=== PATIENT | female | born 1975 | race Caucasian/White ===

== ENCOUNTER 2021-11-26 09:57 | Outpatient (CLI) | payer BC, SELFPAY ==
--- NOTE | 2021-11-26 10:15 | CRLHL7_ITS ---
For Patients: As a result of the Century Cures Act, medical imaging exams and procedure reports are released immediately into your electronic medical record. You may view this report before your referring provider. If you have questions, please contact your health care provider. BILATERAL MAMMOGRAM WITH COMPUTER-AIDED DETECTION AND TOMOSYNTHESIS TECHNIQUE: CC and MLO views were obtained. These mammographic images have been obtained using full-field digital technique. These mammographic images were interpreted with the benefit of computer-aided detection. Breast Tomosynthesis was used in this interpretation. COMPARISON FILM: 11/13/2020, 11/15/2020, 11/14/2019, 07/27/2018. FINDINGS: The breasts are heterogeneously dense, which may obscure small masses IMPRESSION: There is no radiographic evidence for malignancy. ASSESSMENT: BI-RADS Category 1: Negative RECOMMENDATION: Routine screening mammogram in 1 year. A lay language report of this examination will be provided to the patient. Sunny Plunkett M.D. Diagnostic Radiologist [email or web address] SANAM/Dictated by: Sunny Plunkett MD @ 11/26/2021 11:57:00 AM (Electronically Signed)
== END 2021-11-26 09:58 | disposition home or self-care (01) ==
LOC: MAMMO 09:59
PROVIDERS: PCP Family Medicine; Visit Provider Family Medicine
DX: Z12.31 Encounter for screening mammogram for malignant neoplasm of breast (principal); R92.2 Inconclusive mammogram
CPT/HCPCS: 77063; 77067

== ENCOUNTER 2022-01-28 10:26 | Outpatient (CLI) | payer BC, SELFPAY ==
--- OUTSIDE RECORDS SUMMARY | 2022-01-28 10:29 | XMS_ITS ---
:1975 Author Care Team Providers Name Role Phone Chay Moya Primary Care Provider Unavailable Allergies Code Code System Name Reaction Severity Status Onset Sulfa (Sulfonamide Antibiotics) ? ? Active ? Medications No Medications Reported Problems Name Status Onset Date Source ? Otalgia Active 01/12/2022 ? Procedures None recorded. Results Lab Results None recorded. Past Encounters 01/12/2022 ELLIE Walton: [address], [place] [address], Ph. Social History None recorded. Vaccine List Vaccine Type COVID-19, mRNA, LNP-S, PF, 100 mcg/0.5 m L dose (Moderna) 05/31/2020 06/28/2020 04/04/2021 Influenza, injectable, MDCK, quadrivalen t 04/04/2021 Td (adult) preservative free 10/29/2009 Plan of Care Patient Instructions OTC analgesics as needed for irritation . RTC as needed. Reminders Provider Appointments None recorded. ? ? Lab None recorded. ? ? Referral None recorded. ? ? Procedures None recorded. ? ? Surgeries None recorded. ? ? Imaging None recorded. ? ? Vitals Blood Pressure 120/77 mm[Hg]
--- OUTSIDE RECORDS SUMMARY | 2022-01-28 10:29 | XMS_ITS | Clinical Summary ---
:1975 Author Organization [facility] [place] [address] Care Team Providers Name Role Phone Pcp, No Primary Care Provider Unavailable Lexi Perez MD Unavailable [phone] Allergies Active Allergy Reactions Severity Noted Date Comments Sulfa (Sulfonamide Antibiotics) 1 Sulfa (Sulfonamide Antibiotics) Hives 0 Medications Medication Sig Dispensed Refills Start Date End Date Status triamcinolone Apply topically 1 Tube 0 07/10/2011 Active (ARISTOCORT; KENALOG) to affected 0.1 % creamIndications: area(s) 3 times Contact dermatitis and daily. other eczema, due to unspecified cause LORazepam (ATIVAN) 0.5 Take 1-2 tablets 90 tablet 0 12/07/2012 Active mg TabIndications: by mouth every 6 Anxiety state, hours if needed. unspecified spironolactone 0 11/03/2019 Acti ve (ALDACTONE) 50 mg tablet traZODone (DESYREL) 100 Take 100 mg by 0 12/22/2019 Active mg tablet mouth at bedtime. Active Problems Problem Noted Date Anxiety state, unspecified 07/10/2011 Abdominal pain, epigastric 01/16/2011 Social History Tobacco Use Types Packs/Day Years Used Date Never Smoker Smokeless Tobacco: Never Used Tobacco Cessation: Counseling Given: Yes Alcohol Use Standard Drinks/Week Comments No 0 (1 standard drink = 0.6 oz pure alcoho l) Sex Assigned at Date Recorded Not on file Obstetrics History Para Term AB IAB SAB Ectopic Multiple Living Live Births 2 0 0 0 0 0 0 0 Date Outcome GA Total Labor/2nd/3rd Weight Sex Delivery Anes PTL Yoli A 1 A5 Name Clin Labor Last Filed Vital Signs Vital Sign Reading Time Taken Comments Blood Pressure 97/65 01/17/2020 10:31 AM CDT Pulse 69 01/17/2020 10:31 AM CDT Temperature 36.9 ??C (98.4 ??F) 01/17/2020 10:31 AM CDT Respiratory Rate - - Oxygen Saturation 100% 01/17/2020 10:31 AM CDT Inhaled Oxygen Concentration - - Weight 91.2 kg (201 lb) 01/17/2020 10:31 AM CDT Height 177.3 cm (5' 9.8) 01/17/2020 10:31 AM CDT Body Mass Index 29 01/17/2020 10:31 AM CDT Plan of Treatment Health Maintenance Due Date Last Done Comments COVID-19 vaccine series (#1) 1975 Tdap 1988 Depression screening for age 12+ 1989 Hepatitis C screening for age 1204/27/1995 18-79 Tetanus booster 05/17/2018 05/17/2008 (Completed outside of [facility]) BMI (ht and wt on same day) for 01/16/2021 01/17/2020 age 18+ Influenza for age 9-49 01/15/2022 Pap test for age 21-65 12/28/2022 12/29/2019, 12/29/2019, 12/07/2018, Additional history exists Results Not on filefrom Last 3 Months Insurance Payer Benefit Plan / Subscriber ID Effective Dates Phone Addre ss Type Group BLUE CROSS BLUE CROSS OF [id number] [facility] [address] [facility] [place] [address] Care Teams Gyroscopic Engineering Technician Relationship Specialty Start Date End Date Pcp, No PCP - General 12/25/19 . Lexi Perez MD Family Practice 12/25/19
--- OUTSIDE RECORDS SUMMARY | 2022-01-28 10:29 | XMS_ITS | Encounter Summary ---
:1975 Author Reason for Visit Adult earache Assessment and Plan Assessment Note Wax completely removed by irrigation. P atient reports irritation post irrigation. Exam shows full wax removal, canal appea rs normal. TM normal. 1. Otalgia Discussion Note: None recorded.Patient educational handouts: No information available. Plan of Care Patient Instructions OTC analgesics as needed for irritation . RTC as needed. Reminders Provider Appointments None recorded. ? ? Lab None recorded. ? ? Referral None recorded. ? ? Procedures None recorded. ? ? Surgeries None recorded. ? ? Imaging None recorded. ? ? Medications No Medications Reported Medications Administered None recorded. Vitals Blood Pressure 120/77 mm[Hg] Results Lab Results None recorded. Allergies Code Code System Name Reaction Severity Onset Sulfa (Sulfonamide Antibiotics) ? ? ? Problems Name Status Onset Date Source ? Otalgia Active 01/12/2022 ? Procedures None recorded. Vaccine List Vaccine Type COVID-19, mRNA, LNP-S, PF, 100 mcg/0.5 m L dose (Moderna) 05/31/2020 06/28/2020 04/04/2021 Influenza, injectable, MDCK, quadrivalen t 04/04/2021 Td (adult) preservative free 10/29/2009 Social History None recorded. Functional Status Unknown. Past Encounters 01/12/2022 Otalgia ELLIE Villafuerte: [address] [facility] [facility] [address], [place] [address], Ph. History of Present Illness ? Earache Reported By: Patient HPI: Location: right, pain inside ear, pain below ear. Quality: aching. Severity: improving, worseni ng. Duration: started 4 days ago. Timing: gradual. Context: no sick co ntacts, no recent swimming/water in ear, no exposure to second hand smok e, no head trauma, not grinding teeth, no recent air travel. Modifying Factors: does not hurt to lie on, or pull on ear, does not hurt to peter w; feels like she is choking due to swelling in side of neck under ear R side. Associated Symptoms: no hearing loss, no discharge from the ears, no nose/sinus problems, no popping noise in the ears, no ringing in the ears, no fever, no redness, no itching (pruritus), no ear bleeding, no vertigo, ears feel full, swelling. 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 Recent feeling of swelling in throat, tried ot c AH's without relief. </div> Review of Systems ? Urgent Care ROS Reported By: Patient Constitutional: Constitutional: no fever, no significant weight gain, no significant weight loss, no exercise intolerance, no malaise, night sweats, chills Eyes: Eyes: no dry eyes, no vision change, no irritation, no eye disease/injury ENMT: Ears: no difficulty hearing, ear pain. Nose: no frequent nosebleeds, no nose problems , no sinus problems, no congestion, loss of taste/sm ell: normal. Mouth/Throat: no sore throat, no bleeding gums, no snoring, no dry mouth, no mouth ulcers, no oral abnormalitie s, no teeth problems, no ringing in the ears, no sinusitis Cardiovascular: Cardiovascular: no chest brenda n, no arm pain on exertion, no shortness of breath when wal valery, no shortness of breath when lying down, no palpitations, no known heart murmur, no ankle swelling Respiratory: Respiratory: no cough, no wh eezing, no shortness of breath, no coughing up blood, no sleep apnea Gastrointestinal: Gastrointestinal: no abdomin al pain, no nausea, no vomiting, no constipation, normal appe tite, no diarrhea, not vomiting blood, no dyspepsia, no GERD , No loose stools Genitourinary: Genitourinary: no incontinen ce, no difficulty urinating, no hematuria, no increased freq uency, no dysuria Musculoskeletal: Musculoskeletal: no muscle a ches, no arthralgias/joint pain, no back pain, no swelling in the extremities, no neck pain, no difficulty walking, muscle w eakness, no cramps, no osteoporosis, no fractures Integumentary: Skin: no abnormal mole, no j aundice, no rashes, no laceration, no non-healing areas, no timbo nges in hair/nails, no psoriasis, no change in skin color, no breast lump Neurologic: Neurologic: no loss of consc iousness, no weakness, no numbness, no seizures, no di zziness, no migraines, no tremor, no gait dysfunction, no para lysis Psychiatric: Psych: no depression, no sle ep disturbances, feeling safe in a relationship, no alcohol abu se, no anxiety, no hallucinations, no suicidal thoughts, no moo d swings, no memory loss, no agitation, no dementia, no d elirium Endocrine: Endocrine: no fatigue Hematologic/Lymphatic: Hematologic/Lymphatic no swo llen glands, no bruising, no excessive bleeding, no anemi a, no phlebitis Allergic/Immunologic: Allergy/Immunologic: no runn y nose, no sinus pressure, no itching, no hives, no freque nt sneezing Physical Exam ? General Rash or Skin Lesion Exam, Ear Pain Exam Reported By: Patient Constitutional: General Appearance: well-jovana earing, well-nourished, well groomed, in no acute distres s Skin: Lesion Type: ; no evidence o f shingles in scalp, face, or neck Head/Face: Inspection: atraumatic, no m asses, no facial swelling. Inspection of the TMJ: no po pping with motion, normal movement Eyes: Lids and Conjunctivae: no di scharge. Pupils: PERRLA. EOM: EOMI Ears: Right External ear: normally formed. Left External ear: normally formed. Right External audit ory canal: canal occluded by cerumen; no mastoid ttp. Lef t External auditory canal: normal appearance, no obstruction, no erythema, no discharge. Right Tympanic membrane: pearly gr ey, landmarks clear. Left Tympanic membrane: pearly aguilar, landm arks clear Nose: Nasal Mucosa: normal Oral Cavity/Mouth: Tongue: normal tongue. Poste rior pharynx: normal. Nasopharynx: normal Neck: Neck: symmetrical, trachea m idline, normal ROM, no crepitus Respiratory: Inspection/Auscultation: goo d air movement, chest expands symmetrically Lymph Nodes: Cervical: no palpable lymph node enlargement Neurological System: Cranial Nerves: cranial nerv es II-XII grossly intact
[2022-01-28 13:27] LABS: Chloride* 103 mmol/L (96-114)
[2022-01-28 13:28] LABS: Albumin* 4.7 g/dL (3.3-5.0); Potassium* 4.5 mmol/L (3.6-5.1); Sodium* 139 mmol/L (135-149)
[2022-01-28 13:30] LABS: Amylase* 64 U/L (18-89); Carbon Dioxide* 26 mmol/L (20-32); Creatinine* 0.8 mg/dL (0.5-1.5); Estimated Glomerular Filt Rate 93 ml/min
[2022-01-28 13:31] LABS: Alanine Aminotransferase* 18 U/L (4-35); Alkaline Phosphatase* 74 U/L (40-150); Aspartate Amino Transferase* 18 U/L (12-35); Bilirubin Total* 0.6 mg/dL (0.1-1.5); Blood Urea Nitrogen* 14 mg/dL (5-24); Glucose* 97 mg/dL (60-115); Lipase* 102 U/L (23-300); Total Protein* 7.6 g/dL (6.0-8.3)
[2022-01-29 21:21] LABS: Immunoglobulin A 135 mg/dL (68-408)
[2022-01-30 11:46] LABS: Tissue Transglutaminase IgA < 2 U/mL (0-3)
== END 2022-01-28 10:27 | disposition home or self-care (01) ==
PROVIDERS: PCP Family Medicine; Visit Provider Family Medicine
DX: R10.12 Left upper quadrant pain (principal); G89.29 Other chronic pain; R10.13 Epigastric pain; R53.83 Other fatigue
CPT/HCPCS: 80053; 82150; 82784; 83690

== ENCOUNTER 2022-02-13 06:13 | Outpatient (CLI) | payer BC, SELFPAY ==
--- OUTSIDE RECORDS SUMMARY | 2022-02-13 06:16 | XMS_ITS ---
[...] ELLIE Walton: [address], [place] [address], Ph. Social History None recorded. Vaccine List [...]
--- OUTSIDE RECORDS SUMMARY | 2022-02-13 06:16 | XMS_ITS | Encounter Summary ---
[...] Past Encounters 01/12/2022 Otalgia ELLIE Villafuerte: [address] [facility], [facility] [address], [place] [address], Ph. History of Present Illness ? Earache [...] bleeding, no vertigo, ears feel full, swelling. 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, suspects wax build up. Recent feeling of [...] ears, no sinusitis Cardiovascular: Cardiovascular: no chest brneda n, no arm pain on exertion, no [...]
--- OUTSIDE RECORDS SUMMARY | 2022-02-13 06:17 | XMS_ITS | Clinical Summary ---
:1975 Author Organization [facility] [place] [address] Care Team Providers Name Role Phone Pcp, No Primary Care Provider Unavailable Lexi Perez MD Unavailable [phone] Allergies Active Allergy Reactions Severity Noted [...] Type Group BLUE CROSS BLUE CROSS OF [id number] 2017-[facility] [address] [place] [address] Care Teams Market Development Executive Relationship Specialty Start Date End Date Pcp, No PCP - General 12/25/19 . Lexi Perez MD Family Practice 12/25/19
== END 2022-02-13 06:14 | disposition home or self-care (01) ==
LOC: OP CLINIC 06:14
PROVIDERS: PCP Family Medicine; Visit Provider Internal Medicine
DX: R19.8 Other specified symptoms and signs involving the digestive system and abdomen (principal); K44.9 Diaphragmatic hernia without obstruction or gangrene
CPT/HCPCS: 43239; 88305; J2250; J2405; J3010

== ENCOUNTER 2022-02-22 09:33 | Outpatient (CLI) | payer BC, SELFPAY ==
--- OUTSIDE RECORDS SUMMARY | 2022-02-26 10:21 | XMS_ITS | Clinical Summary ---
:1975 Author Organization [facility] [place] [address] Care Team Providers Name Role Phone Pcp, No Primary Care Provider Unavailable Lexi Perez MD Unavailable [phone] Allergies Active Allergy Reactions Severity Noted [...] state, unspecified 07/10/2011 Abdominal pain, epigastric 01/16/2011 Encounters Date Type Specialty Care Team Description 02/13/2022 Lab Requisition Lucho King MD from Last 3 Months Social History Tobacco Use Types Packs/Day Years [...] Tetanus booster 05/17/2018 05/17/2008 (Completed outside of [facility]) BMI (ht and wt on same day) for 01/16/2021 01/17/2020 age 18+ Influenza for age 9-49 01/15/2022 Pap test for age 21-65 12/28/2022 12/29/2019, 12/29/2019, 12/07/2018, Additional history exists Procedures Procedure Name Priority Date/Time Associated Diagnosis Comme nts LAB TRACKING EVENT Routine 02/13/2022 7:10 AM CDT PATH TISSUE EXAM Routine 02/13/2022 7:10 AM Resul ts for this CDT procedure are i n the results section. from Last 3 Months Results LAB TRACKING EVENT (02/13/2022 7:10 AM CDT) Specimen Anatomical Collection Method Collection Time Receive d Time (Source) Location / / Volume Laterality Other (Other) Client Collect / 02/13/2022 7:10 AM 01/17 Unknown CDT 11:17 PM CDT Lucho King MD LAB BILL ONLY Performing Organization Address City/State/ZIP Code Phon e Number [facility] [address] [place] [address] LABORATORY-CENTRAL 2000 LABORATORY PATH TISSUE EXAM (02/13/2022 7:10 AM CDT) Component Value Ref Test Analysis Performed At [facility] gist Range Method Time Signature Case Report Pathology Report ?Case: [id number] ? 02/16/2022 [facility] Authorizing Provider: ??Lucho Castillo MD ?Collected: ? 02/13/2022 0710 ? 8:46 AM CDT HEALTH Ordering Location: ? [facility] C[facility] LAB ?Received: ?02/14/2022915 ? RIANNA CORONEL Pathologist: ? Ervin Cowan ? ENTRAL ? IV, MD ? LABORATORY Specimens: ?? A) - Duodenum ? B) - Stom ach ? C) - GE J unction Biopsy ? D) - Esop hagus ? Final A) DUODENUM, BIOPSY: 02/16/2022 [facility] Electronically Diagnosis 1. Normal duodenal mucosa 8:46 AM CDT HE ALTH signed by 2. Negative for celiac disease and other enteropathy LABORATORY-SISSY Drake B) STOMACH, BIOPSY: LABORATORY MD [facility]INA on 1. Normal gastric antral and body mucosae 02/16/2022 at 2. Negative for Helicobacter 8:46 AM C) GE JUNCTION, BIOPSY: 1. Normal esophageal squamous mucosa 2. Negative for reflux changes and eosinophilic esophagitis 3. Negative for columnar mucosa D) ESOPHAGUS, BIOPSY: 1. Normal esophageal squamous mucosa 2. Negative for reflux changes and eosinophilic esophagitis 3. Negative for columnar mucosa Clinical Ms. Herrera is a 46 y.o. who presents with uppe r abdominal symptoms. 02/16/2022 [facility] Information 8:46 AM CDT HEALTH EGD findings include: ISABEL RY-C - Normal endoscopy ENTRAL LABORATORY Gross A) Received in formalin is a ferrara mucosal fragment measuring 6 mm in greatest dimension, which is entirely submitted in one cassette. It is labeled with the patient's name and designated duodenum. 07/2021 [facility] Description 8:46 AM T HEALTH B) Received in formalin are 5 ferrara mucosal fragments ranging from 4 mm to 8 mm in greatest dimension, which are entirely submitted in one cassette. It is labeled with the patient's name and designated stomach. LABORATORY-C ENTRAL C) Received in formalin are 2 ferrara mucosal fragments ranging from 2 mm to 3 mm in greatest dimension, which are entirely submitted in one cassette. It is labeled with the patient's name and designated GE junction. LABORATORY D) Received in formalin is a ferrara mucosal fragment measuring 5 mm in greatest dimension, which is entirely submitted in one cassette. It is labeled with the patient's name and designated mid esophagus. Selma Padilla 02/14/2022 10:32 AM Microscopic The final 02/16/2022 [facility] Description diagnosis is 8:46 AM [facility] based on LABORATORY-C microscopic ENTRAL examination of LABORATORY appropriate sections of all specimens. Additional 02/16/2022 [facility] Information Interpreted at [facility], Central Laboratory - [address], [place] [address] 8:46 AM [facility] LABORATORY-C ENTRAL LABORATORY Specimen Anatomical Collection Method Collection Time Receive d Time (Source) Location / / Volume Laterality Other SPECIMEN FROM 02/13/2022 7:10 AM 02/15/20 22 9:16 ESOPHAGUS / CDT AM CDT Unknown Specimen SPECIMEN FROM 02/13/2022 7:10 AM 02/15/20 22 9:16 (specimen) STOMACH / Unknown CDT AM CDT Specimen 02/13/2022 7:10 AM 2 9:16 (specimen) (GE CDT AM CDT Junction Biopsy) Specimen SPECIMEN FROM 02/13/2022 7:10 AM 02/15/20 22 9:16 (specimen) ESOPHAGUS / CDT AM CDT Unknown Lucho King MD PATHOLOGY/CYTOLOGY Performing Organization Address City/State/ZIP Code Phon e Number [facility] [address] [place] [address] LABORATORY-CENTRAL 2000 LABORATORY from Last 3 Months Insurance Payer Benefit Plan / Subscriber ID Effective Dates Phone Addre ss Type Group BLUE CROSS BLUE CROSS OF [id number] 2017-[employer] [address] [facility] [place] [address] Care Teams Manager Of Marketing Relationship Specialty Start Date End Date Pcp, No PCP - General 12/25/19 . Lexi Perez MD Family Practice 12/25/19
== END 2022-02-22 09:34 | disposition home or self-care (01) ==
LOC: NFLDUCREF 02-26 10:12
PROVIDERS: PCP Family Medicine; Visit Provider Nurse Practitioner Family
DX: R30.0 Dysuria (principal); N39.0 Urinary tract infection, site not specified
CPT/HCPCS: 87086; 87186

== ENCOUNTER 2022-07-29 07:50 | Outpatient (CLI) | payer BC, SELFPAY | END 2022-07-29 07:51 | disposition home or self-care (01) | LOC: NFLDREF 07-30 19:20 | PROVIDERS: PCP Family Medicine; Referring Provider Family Medicine; Visit Provider Family Medicine | DX: Z01.419 Encounter for gynecological examination (general) (routine) without abnormal findings (principal); R53.83 Other fatigue; Z13.6 Encounter for screening for cardiovascular disorders | CPT/HCPCS: 80053; 80061 ==

== ENCOUNTER 2022-08-05 13:03 | Outpatient (CLI) | payer BC, SELFPAY | END 2022-08-05 13:04 | disposition home or self-care (01) | LOC: NFLDREF 13:04 | PROVIDERS: PCP Family Medicine; Visit Provider Family Medicine | DX: Z00.00 Encounter for general adult medical examination without abnormal findings (principal); R53.83 Other fatigue | CPT/HCPCS: 84443 ==

== ENCOUNTER 2022-09-16 09:30 | Outpatient (RCR) | payer BC, SELFPAY | END 2022-11-09 11:28 | disposition home or self-care (01) | PROVIDERS: PCP Family Medicine; Visit Provider Family Medicine | DX: M25.511 Pain in right shoulder (principal); M25.512 Pain in left shoulder; Z74.09 Other reduced mobility; M62.81 Muscle weakness (generalized); Z51.89 Encounter for other specified aftercare | CPT/HCPCS: 97110; 97140; 97161 ==

== ENCOUNTER 2022-09-18 07:43 | Outpatient (CLI) | payer BC, SELFPAY ==
[2022-09-18 08:10] LABS: Ur HCG Qualitative* Negative (Negative)
== END 2022-09-18 07:44 | disposition home or self-care (01) ==
LOC: OP CLINIC 07:44
PROVIDERS: PCP Family Medicine; Visit Provider Internal Medicine
DX: Z12.11 Encounter for screening for malignant neoplasm of colon (principal); K63.5 Polyp of colon
CPT/HCPCS: 45380; 45385; 81025; 88305; J2250; J2405; J3010

== ENCOUNTER 2022-11-10 15:39 | Emergency (ER) | payer BC, SELFPAY ==
[2022-11-10 15:42] VITALS: BP 123/74; PULSE 79; RESP 18; TEMP 36.7; O2SAT 99
--- NOTE | 2022-11-10 16:20 | CRLHL7_ITS ---
For Patients: As a result of the Century Cures Act, medical imaging exams and procedure reports are released immediately into your electronic medical record. You may view this report before your referring provider. If you have questions, please contact your health care provider. INDICATION: Left leg pain TECHNIQUE: Ultrasound venous duplex lower left extremity. Compression venous exam was performed using umaña-scale, color Doppler, and spectral Doppler analysis. COMPARISON: None. FINDINGS: Sonographic imaging demonstrates the left common femoral, deep femoral, superficial femoral, popliteal, posterior tibial and greater saphenous and the contralateral right common femoral veins to be fully compressible with normal color Doppler blood flow. IMPRESSION: Normal left lower extremity venous ultrasound, no sign of deep venous thrombosis. Dictated by Rodney Howard MD @ 11/10/2022 5:11:40 PM (Electronically Signed)
--- NOTE | 2022-11-10 17:32 | ED_ITS ---
HPI - General Adult General Date Seen: 11/10/22 Chief complaint: Extremity Pain/Injury, Lower Stated complaint: Thinks there may be a blood clot L leg Time Seen by Provider: 11/10/22 16:05 Source: patient Mode of arrival: ambulatory Limitations: no limitations History of Present Illness HPI narrative: Patient is a 47-year-old female who comes in with complaints of tenderness in her left thigh and a sensation of movement at times. Two and half weeks ago she had a 24 hour GI illness with vomiting and diarrhea. Shortly after that she began having some discomfort in her left thigh. This began in the medial aspect is now most severe anteriorly. She has some varicosities on that side. No history of DVT. She does not smoke or take estrogen. There is a strong family history of blood clots however. She is unaware of any of these clots were related to a congenital clotting disorder. She denies any chest pain or shortness of breath. She denies any pain, swelling, redness in her calf. She has had no periods of immobilization. Related Data Home Medications Medication Instructions Recorded Confirmed cholecalciferol (vitamin D3) 25 1,000 unit PO DAILY 02/22/22 08/05/22 mcg (1,000 unit) tablet magnesium citrate 100 mg capsule 300 mg PO QDAY 08/05/22 08/05/22 spironolactone 50 mg tablet 50 mg PO QAM 08/05/22 08/05/22 Previous Rx's Medication Instructions Recorded omeprazole 20 mg capsule,delayed 20 mg PO QDAY #30 caps 01/28/22 release peg 3350-electrolytes 236 4,000 ml PO .ud PRN Colonoscopy 09/17/22 gram-22.74 gram-6.74 gram-5.86 #4,000 mL gram solution (Golytely) peg 3350-electrolytes 236 240 ml PO ONCE #4,000 mL 09/17/22 gram-22.74 gram-6.74 gram-5.86 gram solution (Golytely) Allergies Allergy/AdvReac Type Severity Reaction Status Date / Time Sulfa drugs Allergy Severe Hives Uncoded 08/05/22 12:56 Adhesive Allergy Unknown Unknown Uncoded 08/05/22 12:56 Latex Allergy Unknown Unknown Uncoded 08/05/22 12:56 Nickel Allergy Unknown Unknown Uncoded 08/05/22 12:56 Review of Systems Narrative: Review of systems is outlined above otherwise noted to be negative. PFSH PFS Medical History (Updated 11/10/22 @ 16:54 by Sunny Peng MD) Moderate anxiety ?F41.9 - Anxiety disorder, unspecified (ICD-10) Insomnia ?G47.00 - Insomnia, unspecified (ICD-10) Constipation ?K59.00 - Constipation, unspecified (ICD-10) Chronic back pain greater than 3 months duration ?M54.9 - Dorsalgia, unspecified (ICD-10) ?G89.29 - Other chronic pain (ICD-10) Blepharospasm of right eye ?G24.5 - Blepharospasm (ICD-10) Surgical History (Updated 08/05/22 @ 06:55 by Santa Wheeler MD) History of tonsillectomy (1999) ?Z90.89 - Acquired absence of other organs (ICD-10) History of laparoscopic cholecystectomy (2007) ?Z90.49 - Acquired absence of other specified parts of digestive tract (ICD- 10) History of colposcopy with cervical biopsy (11/2017) ?Z98.890 - Other specified postprocedural states (ICD-10) History of colonoscopy (1999) ?Z98.890 - Other specified postprocedural states (ICD-10) History of 2 sections (2007) ?Z98.891 - History of uterine scar from previous surgery (ICD-10) Family History (Updated 08/05/22 @ 06:58 by Santa Wheeler MD) Paternal Grandmother Breast cancer, Onset Age: 35 Paternal Grandfather Coronary artery disease Myocardial infarction, Onset Age: 73 Stroke Father Coronary artery disease Diabetes S/P coronary artery stent placement, Onset Age: 60 Sister Multiple sclerosis Aunt Schizophrenia Other Alzheimers disease Testicle cancer Social History (Updated 08/05/22 @ 07:00 by Santa Wheeler MD) 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: , 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, 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 Non-smoker Exercises -walks daily, 4 times a week 4 miles Rarely consumes alcohol Smoking Status: Former smoker Do you use any of these nicotine containing products: None Second hand tobacco smoke exposure: No How often do you have a drink containing alcohol: monthly or less How many standard drinks containing alcohol do you have on a typical day: 1 or 2 How often do you have six or more drinks on one occasion: Never AUDIT-C Alcohol total score: 1 Non-prescribed substance use: marijuana (any form) Non-prescribed substance use details: to help with sleep Little interest or pleasure in doing things: not at all Feeling down, depressed, or hopeless: not at all service: No Exam Narrative: Exam Narrative: Vitals noted. HEENT: Conjunctiva clear. Neck is supple without adenopathy, thyromegaly. Lungs: Clear to auscultation in all ruffin. No wheezes, rales, rhonchi. Heart: Regular rate and rhythm without murmur. Abdomen: Soft and nontender. No guarding, rigidity, rebound. Bowel sounds are normal. No palpable masses. Extremities: No cyanosis or edema. Good distal pulses. Skin: No abnormalities noted of the exposed skin. She does have some scattered varicosities. There are some palpable vessels and the medial left thigh. No palpable clot. Negative Hemanth sign. Neurologic: Awake, alert, fully oriented. Neurologic exam is nonfocal. Const: Vital Signs, click to edit/add: Vital Signs - 24 hr 11/10/22 15:42 Temperature 98.1 F Pulse Rate [Right Pulse Oximeter] 79 Respiratory Rate 18 Blood Pressure [Ri ght Upper Arm] 123/74 Pulse Oximetry 99 Oxygen Delivery Me thod Room Air Course Course Hospital Course: Patient seen and examined. Venous duplex scan of her left leg is ordered and is completely negative. No ultrasound evidence of superficial thrombophlebitis. Vital Signs Vital signs: Initial Vital Signs Temperature 98.1 F 11/10/22 15:42 Temperature Source Temporal Artery Scan 11/10/22 15:42 Pulse Rate 79 11/10/22 15:42 Respiratory Rate 18 11/10/22 15:42 Blood Pressure 123/74 11/10/22 15:42 Blood Pressure Mean 90 11/10/22 15:42 Blood Pressure Position Sitting 11/10/22 15:42 Pulse Oximetry 99 11/10/22 15:42 Oxygen Delivery Method Room Air 11/10/22 15:42 Vital Signs Temperature 98.1 F 11/10/22 15:42 Pulse Rate 79 11/10/22 15:42 Respiratory Rate 18 11/10/22 15:42 Blood Pressure 123/74 11/10/22 15:42 Pulse Oximetry 99 11/10/22 15:42 Oxygen Delivery Method Room Air 11/10/22 15:42 Temperature 98.1 F 11/10/22 15:42 Pulse Rate 79 11/10/22 15:42 Respiratory Rate 18 11/10/22 15:42 Blood Pressure 123/74 11/10/22 15:42 Pulse Oximetry 99 11/10/22 15:42 Oxygen Delivery Method Room Air 11/10/22 15:42 Medical Decision Making MDM Narrative Medical decision making narrative: Her symptoms are most consistent with a superficial thrombophlebitis. Deep clot has been ruled out. Discharge Plan Discharge Clinical Impression: Superficial thrombophlebitis Patient Disposition: Home, Self-Care Condition: Stable Additional Instructions: Rest, heat, elevate, compression stockings. Aspirin 325 mg twice a day until pain resolved. Follow up in the clinic if no better over the next 7-10 days. Prescriptions: No Action cholecalciferol (vitamin D3) 25 mcg (1,000 unit) tablet 1,000 unit PO DAILY magnesium citrate 100 mg capsule 300 mg PO QDAY spironolactone 50 mg tablet 50 mg PO QAM omeprazole 20 mg capsule,delayed release(DR/EC) 20 mg PO QDAY Qty: 30 0RF peg 3350-electrolytes [Golytely] 236-22.74-6.74 -5.86 gram recon soln 240 ml PO ONCE Qty: 4000 0RF Rx Instructions: 4pm day prior to procedure. Drink 8oz glass every 15 minutes until 1/2 of solution is gone. 6 hours prior to procedure drink 8 oz glass every 15 minutes until remaining solution gone. peg 3350-electrolytes [Golytely] 236-22.74-6.74 -5.86 gram recon soln 4,000 ml PO .ud PRN (Reason: Colonoscopy) Qty: 4000 0RF Rx Instructions: 1 day prior to scopes, between 4 and 6:00 p.m., drink 8 oz glass every 15 minutes until half a gallon is gone. 5 hours prior to procedure, drink 8 oz glass every 15 minutes until second half gallon in gone Follow Up/Referrals: Santa Wheeler MD [Primary Care Provider] - Stand Alone [facility]
== END 2022-11-10 17:13 | disposition home or self-care (01) ==
LOC: ED 17:00
PROVIDERS: Emergency Provider Family Medicine; PCP Family Medicine
DX: I80.02 Phlebitis and thrombophlebitis of superficial vessels of left lower extremity (principal)
CPT/HCPCS: 93971; 99282; 99283

== ENCOUNTER 2022-11-17 19:33 | Emergency (ER) | payer BC, SELFPAY ==
[2022-11-17 19:41] VITALS: BP 126/67; PULSE 74; RESP 20; TEMP 36.2; O2SAT 99
--- NOTE | 2022-11-17 19:49 | ED_ITS ---
HPI - Nausea/Vomiting/Diarrhea General Chief complaint: Nausea/Vomiting Stated complaint: Diarrhea Vomiting Time Seen by Provider: 11/17/22 19:37 History of Present Illness HPI Narrative: This 47-year-old female comes in reporting 2 days of nausea, vomiting, and diarrhea. She states that her mouth is dry in she has a headache related to these symptoms. She has had symptoms like this in the past that of lasted for short time but comes in today because of prolonged persistent symptoms. She does not report any fevers. Prior to this She was in good health. Related Data Home Medications Medication Instructions Recorded Confirmed cholecalciferol (vitamin D3) 25 1,000 unit PO DAILY 02/22/22 11/17/22 mcg (1,000 unit) tablet magnesium citrate 100 mg capsule 300 mg PO QDAY 08/05/22 11/17/22 spironolactone 50 mg tablet 50 mg PO QAM 08/05/22 11/17/22 Previous Rx's Medication Instructions Recorded omeprazole 20 mg capsule,delayed 20 mg PO QDAY #30 caps 01/28/22 release peg 3350-electrolytes 236 4,000 ml PO .ud PRN Colonoscopy 09/17/22 gram-22.74 gram-6.74 gram-5.86 #4,000 mL gram solution (Golytely) peg 3350-electrolytes 236 240 ml PO ONCE #4,000 mL 09/17/22 gram-22.74 gram-6.74 gram-5.86 gram solution (Golytely) Allergies Allergy/AdvReac Type Severity Reaction Status Date / Time Sulfa drugs Allergy Severe Hives Uncoded 08/05/22 12:56 Adhesive Allergy Unknown Unknown Uncoded 08/05/22 12:56 Latex Allergy Unknown Unknown Uncoded 08/05/22 12:56 Nickel Allergy Unknown Unknown Uncoded 08/05/22 12:56 Review of Systems Status of ROS: Reports: 10 or more systems reviewed and unremarkable except as noted in History and below Narrative: Constitutional: No fevers, no weight gain or loss. Eyes: No discharge. No vision changes. HENT: No congestion, no sore throat, no ear pain. Cardiovascular: No chest pain, no palpitations. Respiratory: No shortness of breath, no wheezes, no cough. Gastrointestinal: No abdominal pain . Nausea, vomiting, and diarrhea. Genitourinary: No dysuria, no hematuria. Musculoskeletal: Normal range of motion. Skin: No rashes, no pruritis. Neurological: No dizziness, weakness, sensory change, speech change. Endo/Heme/Allergies: No bruising or bleeding. No polydipsia. Pysch: no suicidality, no anxiety, no insomnia. All other systems reviewed and are negative. [facility] Medical History (Updated 11/17/22 @ 20:36 by Thiago Dean MD) Moderate anxiety ?F41.9 - Anxiety disorder, unspecified (ICD-10) Insomnia ?G47.00 - Insomnia, unspecified (ICD-10) Constipation ?K59.00 - Constipation, unspecified (ICD-10) Chronic back pain greater than 3 months duration ?M54.9 - Dorsalgia, unspecified (ICD-10) ?G89.29 - Other chronic pain (ICD-10) Blepharospasm of right eye ?G24.5 - Blepharospasm (ICD-10) Surgical History (Updated 08/05/22 @ 06:55 by Santa Wheeler MD) History of tonsillectomy (1999) ?Z90.89 - Acquired absence of other organs (ICD-10) History of laparoscopic cholecystectomy (2007) ?Z90.49 - Acquired absence of other specified parts of digestive tract (ICD- 10) History of colposcopy with cervical biopsy (11/2017) ?Z98.890 - Other specified postprocedural states (ICD-10) History of colonoscopy (1999) ?Z98.890 - Other specified postprocedural states (ICD-10) History of 2 sections (2007) ?Z98.891 - History of uterine scar from previous surgery (ICD-10) Family History (Updated 08/05/22 @ 06:58 by Santa Wheeler MD) Paternal Grandmother Breast cancer, Onset Age: 35 Paternal Grandfather Coronary artery disease Myocardial infarction, Onset Age: 73 Stroke Father Coronary artery disease Diabetes S/P coronary artery stent placement, Onset Age: 60 Sister Multiple sclerosis Aunt Schizophrenia Other Alzheimers disease Testicle cancer Social History (Updated 08/05/22 @ 07:00 by Santa Wheeler MD) 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: , 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, 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 Non-smoker Exercises -walks daily, 4 times a week 4 miles Rarely consumes alcohol Smoking Status: Former smoker Do you use any of these nicotine containing products: None Second hand tobacco smoke exposure: No How often do you have a drink containing alcohol: monthly or less How many standard drinks containing alcohol do you have on a typical day: 1 or 2 How often do you have six or more drinks on one occasion: Never AUDIT-C Alcohol total score: 1 Non-prescribed substance use: marijuana (any form) Little interest or pleasure in doing things: not at all Feeling down, depressed, or hopeless: not at all service: No Exam Narrative: Exam Narrative: Constitutional: Well-developed, well-nourished, no acute distress. HEENT: Normocephalic, atraumatic. Neck: Normal range of motion. Nontender. Supple. Heart: Regular. No murmurs. Normal rate. Intact distal pulses. Lungs: Clear to auscultation. No chest discomfort. No wheezes, rhonchi, or rales. Abdomen: Normal bowel sounds. Nontender. No rebound tenderness. Genitalia: Deferred. Back: No midline tenderness. Normal range of motion. Extremities: Normal range of motion. No injury. Skin: Intact. No rash. Warm. No erythema or pallor. Neurologic: No altered sensation. No weakness. Alert and oriented. Psychiatric: No suicidality. No anxiety or depression. No insomnia. Nursing notes and vitals signs are reviewed. Const: Vital Signs, click to edit/add: Vital Signs - 24 hr 11/17/22 19:41 Temperature 97.2 F L Pulse Rate [Right Pulse Oximeter] 74 Respiratory Rate 20 Blood Pressure [Le ft Upper Arm] 126/67 Pulse Oximetry 99 Oxygen Delivery Me thod Room Air Course Vital Signs Vital signs: Initial Vital Signs Temperature 97.2 F L 11/17/22 19:41 Temperature Source Temporal Artery Scan 11/17/22 19:41 Pulse Rate 74 11/17/22 19:41 Respiratory Rate 20 11/17/22 19:41 Blood Pressure 126/67 11/17/22 19:41 Blood Pressure Mean 86 11/17/22 19:41 Blood Pressure Position Semi-Fowlers 11/17/22 19:41 Pulse Oximetry 99 11/17/22 19:41 Oxygen Delivery Method Room Air 11/17/22 19:41 Vital Signs Temperature 97.2 F L 11/17/22 19:41 Pulse Rate 74 07/04/23 19:41 Respiratory Rate 20 11/17/22 19:41 Blood Pressure 126/67 11/17/22 19:41 Pulse Oximetry 99 11/17/22 19:41 Oxygen Delivery Method Room Air 11/17/22 19:41 Temperature 97.2 F L 11/17/22 19:41 Pulse Rate 74 11/17/22 19:41 Respiratory Rate 20 11/17/22 19:41 Blood Pressure 126/67 11/17/22 19:41 Pulse Oximetry 99 11/17/22 19:41 Oxygen Delivery Method Room Air 11/17/22 19:41 MDM - Nausea/Vomiting/Diarrhea MDM Narrative Medical decision making narrative: This patient has 2 days of vomiting and diarrhea. An IV was established where she received a L of normal saline, 30 mg of Toradol, and 4 mg of Zofran. Lab results returned with reassuring findings. The patient's symptoms have improved with these stated treatments. She is okay to be discharged home. Prescription for Zofran is provided. The patient is encouraged use [id number] Imodium for management of diarrhea symptoms. Lab Data Labs: Lab Results 11/17/22 Range/Units 20:07 WBC 6.26 (4.50-11.00) K/uL RBC 4.68 (4.00-5.20) m/uL Hgb 13.9 (12.0-16.0) gm/dL Hct 42.0 (33.0-51.0) % MCV 90 (80-100) fL MCH 30 (26-34) pg MCHC 33 (32-36) gm/dL RDW Coeff of Saravanan 12.5 (11.5-15.5) % Plt Count 188 (140-440) K/uL Neut % (Auto) 81.0 H (42.0-72.0) % Lymph % (Auto) 10.9 L (20-44) % Montgomery % (Auto) 7.7 (0.0-11.0) % Eos % (Auto) 0.2 (0.0-7.0) % Baso % (Auto) 0.2 (0.0-3.0) % Neut # (Auto) 5.10 (1.7-7.0) K/uL Lymph # (Auto) 0.70 L (0.90-2.90) K/uL Montgomery # (Auto) 0.50 (0.00-0.90) K/UL Eos # (Auto) 0.01 (0.00-0.50) K/uL Baso # (Auto) 0.01 (0.00-0.30) K/uL Sodium 136 (135-149) mmol/L Potassium 3.7 (3.6-5.1) mmol/L Chloride 102 (96-114) mmol/L Carbon Dioxide 22 (20-32) mmol/L BUN 13 (5-24) mg/dL Creatinine 0.8 (0.5-1.5) mg/dL Estimated GFR 93 ml/min Glucose 112 (60-115) mg/dL Calcium 9.0 (8.4-10.6) mg/dL Discharge Plan Discharge Clinical Impression: Gastroenteritis Patient Disposition: Home, Self-Care Condition: Improved Additional Instructions: Take medication as needed and directed. Use Imodium [id number] as needed and directed also for diarrhea management. Increase fluids and diet as tolerated. Follow up with MD return if not improving or worsening. Prescriptions: No Action cholecalciferol (vitamin D3) 25 mcg (1,000 unit) tablet 1,000 unit PO DAILY magnesium citrate 100 mg capsule 300 mg PO QDAY spironolactone 50 mg tablet 50 mg PO QAM omeprazole 20 mg capsule,delayed release(DR/EC) 20 mg PO QDAY Qty: 30 0RF peg 3350-electrolytes [Golytely] 236-22.74-6.74 -5.86 gram recon soln 240 ml PO ONCE Qty: 4000 0RF Rx Instructions: 4pm day prior to procedure. Drink 8oz glass every 15 minutes until 1/2 of solution is gone. 6 hours prior to procedure drink 8 oz glass every 15 minutes until remaining solution gone. peg 3350-electrolytes [Golytely] 236-22.74-6.74 -5.86 gram recon soln 4,000 ml PO .ud PRN (Reason: Colonoscopy) Qty: 4000 0RF Rx Instructions: 1 day prior to scopes, between 4 and 6:00 p.m., drink 8 oz glass every 15 minutes until half a gallon is gone. 5 hours prior to procedure, drink 8 oz glass every 15 minutes until second half gallon in gone Follow Up/Referrals: Santa Wheeler MD [Primary Care Provider] - Stand Alone Forms: [facility] Info Instructions
[2022-11-17] MEDS: 0.9 % SODIUM CHLORIDE 1000 ml 1,000 ML IV (20:02)
[2022-11-17] MEDS: KETOROLAC 30 MG/ML inj IVP (20:02)
[2022-11-17] MEDS: ONDANSETRON 2 MG/ML inj 4 MG IVP (20:02)
[2022-11-17 20:13] LABS: Basophils Absolute Auto 0.01 K/uL (0.00-0.30); Basophils Percent Auto 0.2 % (0.0-3.0); Eosinophils Absolute Auto 0.01 K/uL (0.00-0.50); Eosinophils Percent Auto 0.2 % (0.0-7.0); Hemoglobin* 13.9 gm/dL (12.0-16.0); Lymphocytes Percent Auto 10.9 % (20-44); Mean Corpuscular HGB Conc 33 gm/dL (32-36); Mean Corpuscular Hemoglobin 30 pg (26-34); Mean Corpuscular Volume 90 fL (80-100); Monocytes Percent Auto 7.7 % (0.0-11.0); Platelet Count* 188 K/uL (140-440); RDW Coefficient of Variation % 12.5 % (11.5-15.5); Red Blood Count 4.68 m/uL (4.00-5.20); Slide Review Reflex No; White Blood Count* 6.26 K/uL (4.50-11.00)
[2022-11-17 20:25] LABS: Chloride* 102 mmol/L (96-114); Potassium* 3.7 mmol/L (3.6-5.1); Sodium* 136 mmol/L (135-149)
[2022-11-17 20:28] LABS: Carbon Dioxide* 22 mmol/L (20-32); Creatinine* 0.8 mg/dL (0.5-1.5); Estimated Glomerular Filt Rate 93 ml/min
[2022-11-17 20:29] LABS: Blood Urea Nitrogen* 13 mg/dL (5-24); Glucose* 112 mg/dL (60-115)
[2022-11-17 20:34] VITALS: BP 118/66; PULSE 69; RESP 18; O2SAT 99
== END 2022-11-17 20:55 | disposition home or self-care (01) ==
PROVIDERS: Emergency Provider Emergency Medicine Emergency Medical Services; PCP Family Medicine
DX: K52.9 Noninfective gastroenteritis and colitis, unspecified (principal)
CPT/HCPCS: 36415; 80048; 85025; 96374; 96375; 99283; 99284; J1885; J2405; J7030

== ENCOUNTER 2022-12-02 07:58 | Outpatient (CLI) | payer BC, SELFPAY ==
--- NOTE | 2022-12-02 08:15 | CRLHL7_ITS ---
For Patients: As a result of the Cures Act, medical imaging exams and procedure reports are released immediately into your electronic medical record. You may view this report before your referring provider. If you have questions, please contact your health care provider. BILATERAL SCREENING MAMMOGRAM WITH COMPUTER-AIDED DETECTION AND TOMOSYNTHESIS TECHNIQUE: CC and MLO views were obtained. These mammographic images have been obtained using full-field digital technique. These mammographic images were interpreted with the benefit of computer-aided detection. Breast tomosynthesis was used in this interpretation. COMPARISON FILM: 11/26/21, 11/15/20, 11/13/20. FINDINGS: The breasts are heterogeneously dense, which may obscure small masses. IMPRESSION: There is no radiographic evidence for malignancy. ASSESSMENT: BI-RADS Category 2: Benign RECOMMENDATION: Routine screening mammogram in 1 year. A lay language report of this examination will be provided to the patient. KAE PACE M.D. Diagnostic/Nuclear Medicine Radiologist [email or web address] LINDA:[email or web address] Transcribed: 12/02/2022, 5:[address]/Dictated by: Kae Pace MD @ 12/02/2022 8:28:00 AM (Electronically Signed)
== END 2022-12-02 07:59 | disposition home or self-care (01) ==
PROVIDERS: PCP Family Medicine; Visit Provider Family Medicine
DX: Z12.31 Encounter for screening mammogram for malignant neoplasm of breast (principal); R92.2 Inconclusive mammogram
CPT/HCPCS: 77063; 77067

== ENCOUNTER 2023-05-07 14:57 | Outpatient (CLI) | payer BC, SELFPAY | END 2023-05-07 14:58 | disposition home or self-care (01) | LOC: NFLDREF 14:58 | PROVIDERS: PCP Family Medicine; Visit Provider Obstetrics & Gynecology | DX: Z13.29 Encounter for screening for other suspected endocrine disorder (principal); R68.89 Other general symptoms and signs | CPT/HCPCS: 84443 ==

== ENCOUNTER 2023-10-01 07:02 | Outpatient (CLI) | payer BC, SELFPAY ==
--- OUTSIDE RECORDS SUMMARY | 2023-10-01 07:05 | XMS_ITS | Clinical Summary ---
Author Name Unknown Organization [facility] Address [place], [place] [address] Care Team Providers Care Scientific Editor Name Role Phone Pcp, No Primary Care Provider Unavailabl e Lexi Perez MD Unavailable [phone] Allergies Active Allergy Reactions Criticality Noted Date Comments Sulfa (Sulfonamide Antibiotics) 06/2010 Sulfa (Sulfonamide Antibiotics) Hives 06/2019 Medications Medication Sig Dispensed Refills Start Date End Date Status triamcinolone (ARISTOCORT; KENALOG) 0.1 % creamIndications:Con tact dermatitis and other eczema, due to unspecified cause Apply topically to affected area(s) 3 times daily. 1 Tube prn 07/10/2011 Active LORazepam (ATIVAN) 0.5 mg TabIndications:Anxie ty state, unspecified Take 1-2 tablets by mouth every 6 hours if needed. 90 tablet 0 12/07/2012 Active spironolactone (ALDACTONE) 50 mg tablet 11/03/2019 Active traZODone (DESYREL) 100 mg tablet Take 100 mg by mouth at bedtime. 12/22/2019 Active Active Problems Problem Noted Date Diagnosed Date Anxiety state, unspecified 07/10/2011 Abdominal pain, epigastric 01/16/2011 Social History Tobacco Use Types Packs/Day Years Used Date Smoking Tobacco: Never Smokeless Tobacco: Never Tobacco Cessation:Counseling Given: Yes Alcohol Use Standard Drinks/Week Comments No 0 (1 standard drink = 0.6 oz pur e alcohol) Social Connections Answer Date Recorded Frequency of Communication with Friends and Fami ly Not on file 05/17/2021 Financial Resource Strain Answer Date R ecorded Difficulty of Paying Living Expenses Not on file 05/17/2021 Difficulty of Paying Living Expenses Not on file 05/17/2021 Sex and Gender Information Value Date Recorded Sex Assigned at Not on file Gender Identity Not on file Sexual Orientation Not on file Obstetrics History Para Term AB IAB SAB Ectopic Multiple Livin g Live Births 2 0 0 0 0 0 0 0 Date Outcome GA Total Labor Labor/2nd/3rd Weight Sex Delivery Anes PTL Yoli A1 A5 Name Cl in Last Filed Vital Signs Vital Sign Reading Time Taken Comments Blood Pressure 97/65 01/17/2020 10:31 AM CDT Pulse 69 01/17/2020 10:31 AM CDT Temperature 36.9 ??C (98.4 ??F) 01/17/2020 10:31 AM C DT Respiratory Rate - - Oxygen Saturation 100% 01/17/2020 10:31 AM CDT Inhaled Oxygen Concentration - - Weight 91.2 kg (201 lb) 01/17/2020 10:31 AM CDT Height 177.3 cm (5' 9.8) 01/17/2020 10:31 AM CD T Body Mass Index 29 01/17/2020 10:31 AM CDT Plan of Treatment Health Maintenance Due Date Last Done Comments Tdap 1988 Depression screening for age 12+ 1989 HIV for age 15-65 1992 Hepatitis C screening for age 18-79 1995 Tetanus booster 05/17/2018 05/17/2008 (Comp leted outside of [facility]) BMI (ht and wt on same day) for age 18+ 01/16/2021 01/17/2020 Colonoscopy through age 75 2022 Lipids for age 45-75 2022 Mammogram for age 45-75 2022 Pap test for age 21-65 12/28/2022 0, 12/29/2019, 12/07/2018, Additional history exists COVID-19 vaccine series (2022- season) 2023 Influenza for age 9-49 01/16/2024 Pneumococcal series for age 6-64 Aged Out No longer eligible based on patient's age to complete this topic Procedures Procedure Name Priority Date/Time Associated Diagnosis Comments AUTOMATED WEAVER THIN PREP PAP SCREEN IMAGED Routine 12/29/2019 1:30 PM CDT from Last 3 Months or Most Recently Relevant to Health Maintenance Results * AUTOMATED WEAVER THIN PREP PAP SCREEN IMAGED (12/29/2019 1:30 PM CDT) Case Report Gynecologic Cytology Report ? Case: [id number] ? Authorizing Provider: ??Kavya Luong MD ?Collected: ? 12/29/2019 1330 ? Ordering Location: ? [facility] ?Received: ?01/01/2020 1031 ? First Screen: ?Kylah Aguilar ? Specimen: ?AUTOMATED WEAVER ThinPrep Vial Screening, Cervical/Vaginal ? 01/09/2020 1:25 PM CDT [facility] INTERPRETATION/ RESULT NEGATIVE FOR INTRAEPITHELIAL LESION OR MALIGNANCY (NIL) (none) 01/09/2020 1:25 PM CDT [facility] IMEN ADEQUACY Satisfactory for evaluation Endocervical component present 01/09/2020 1:25 PM CDT [facility] HPV REQUEST HPV and PAP 01/09/2020 1:25 PM CDT [facility] Date of LMP 12/13/2019 01/09/2020 1:25 PM CDT [facility] Last Pap Date 12/07/2018 01/09/2020 1:25 PM CDT [facility] Last Pap Result NIL 0 1:25 PM CDT [facility] Comment:-HPV Additional Information 01/09/2020 1:25 PM CDT [facility] Comment: Interpreted at [facility] - [address], [place] [address] Automated Review Successful 01/09/2020 1:25 PM CDT [facility] Comment:Specimen processed s uccessfully by automated spa assistant manager device, ThinPrep Imaging System, [employer] ANCILLARY TESTING AUTOMATED WEAVER HPV Ordered, Please see separate report 01/09/2020 1:25 PM CDT [facility] Note The pap test is a screening technique, not a diagnostic procedure. It is used primarily to screen for squamous cancers and precursor lesions. Published studies have shown that it is subject to both false negative and false positive results. The pap test should not be used as the sole means to diagnose or exclude pre-malignant and malignant lesions. 01/09/2020 1:25 PM CDT [facility] Other (Cervical/Vagina l) 12/29/2019 1:30 PM CDT 01/01/2020 10:31 AM CDT Kavya Luong MD PATHOLOGY/CYTOLOGY [facility] [address] [place] [address], [place] from Last 3 Months or Most Recently Relevant to Health Maintenance Care Teams Scientific Editor Relationship Specialty Start Date End Date Pcp, No . PCP - General 12/25/19 Lexi Perez MD . Family Practice 12/25/19
--- NOTE | 2023-10-01 08:03 | W.ANESCHARGE ---
Anesthesia Charges Start Date/Time Anesthesia Start Date: 10/01/23 Anesthesia Start Time: 07:46 Stop Date/Time Anesthesia Stop Date: 10/01/23 Anesthesia Stop Time: 08:10
--- NOTE | 2023-10-01 08:14 | W.ANESCHARGE ---
Anesthesia Charges Start Date/Time Anesthesia Start Date: 10/01/23 Anesthesia Start Time: 07:46 Stop Date/Time Anesthesia Stop Date: 10/01/23 Anesthesia Stop Time: 08:10
== END 2023-10-01 07:03 | disposition home or self-care (01) ==
PROVIDERS: PCP Family Medicine; Visit Provider Internal Medicine
DX: Z86.010 Personal history of colon polyps (principal)
CPT/HCPCS: 00812; 45378; J2405; J2704

== ENCOUNTER 2023-12-08 09:03 | Outpatient (CLI) | payer BC, SELFPAY ==
--- OUTSIDE RECORDS SUMMARY | 2023-12-08 09:06 | XMS_ITS | Clinical Summary ---
Author Organization [facility] Address [place], [place] [address] Care Team Providers Care Network Specialist Name Role Phone Pcp, No Primary Care Provider Unavailliana e Lexi Perez MD Unavailable [phone] Allergies Active Allergy Reactions Criticality Noted Date [...] Outcome GA Total Labor Labor/2nd/3rd Weight Sex Type Anes PTL Yoli A1 A5 Name Clin Last Filed Vital Signs Vital Sign Reading [...] Procedure Name Priority Date/Time Associated Diagnosis Comments DIRECT SALES PROFESSIONAL THIN PREP PAP SCREEN IMAGED Routine 12/29/2019 1:30 PM CDT from Last 3 Months or Most Recently Relevant to Health Maintenance Results * DIRECT SALES PROFESSIONAL THIN PREP PAP SCREEN IMAGED (12/29/2019 1:30 PM CDT) Case Report Gynecologic Cytology Report ? Case: [id number] ? Authorizing Provider: ??Kavya Luong MD ?Collected: ? 12/29/2019 1330 ? Ordering Location: ? [facility] ?Received: ?01/01/2020 1031 ? First Screen: ?Kylah Aguilar ? Specimen: ?DIRECT SALES PROFESSIONAL ThinPrep Vial Screening, Cervical/Vaginal ? 01/09/2020 1:25 PM CDT [facility] INTERPRETATION/ RESULT NEGATIVE FOR INTRAEPITHELIAL LESION OR MALIGNANCY (NIL) (none) 01/09/2020 1:25 PM CDT [facility] IMEN ADEQUACY Satisfactory for evaluation Endocervical component present 01/09/2020 1:25 PM CDT [facility] HPV REQUEST HPV and PAP 01/09/2020 1:25 PM CDT [facility] Date of LMP 12/13/2019 01/09/2020 1:25 PM CDT [facility] Last Pap Date 12/07/2018 01/09/2020 1:25 PM CDT [facility] Last Pap Result NIL 0 1:25 PM CDT [facility] Comment:-HPV Additional Information 01/09/2020 1:25 PM CDT [facility] Comment: Interpreted at [facility] - [address], [place] [address] Automated Review Successful 01/09/2020 1:25 PM CDT [facility] Comment:Specimen processed s uccessfully by automated specialist field engineer device, [employer] Imaging System, [employer] ANCILLARY TESTING DIRECT SALES PROFESSIONAL HPV Ordered, Please see separate report 01/09/2020 1:25 PM CDT [facility] Note The pap test is a [...] and malignant lesions. 01/09/2020 1:25 PM CDT [facility] Other (Cervical/Vagina l) 12/29/2019 1:30 PM CDT 01/01/2020 10:31 AM CDT Kavya Luong MD PATHOLOGY/CYTOLOGY [facility] [address] [place] [address], from Last 3 Months or Most Recently Relevant to Health Maintenance Care Teams Network Specialist Relationship Specialty Start Date End Date Pcp, No . PCP - General 12/25/19 Lexi Perez MD . Family Practice 12/25/19
--- NOTE | 2023-12-08 09:15 | CRLHL7_ITS ---
For Patients: As a result of the Century Cures Act, medical imaging exams and procedure reports are released immediately into your electronic medical record. You may view this report before your referring provider. If you have questions, please contact your health care provider. BILATERAL SCREENING MAMMOGRAM WITH COMPUTER-AIDED DETECTION AND TOMOSYNTHESIS TECHNIQUE: CC and MLO views were obtained. These mammographic images have been obtained using full-field digital technique. These mammographic images were interpreted with the benefit of computer-aided detection. Breast tomosynthesis was used in this interpretation. COMPARISON FILM: 12/02/22, 11/26/21, 11/15/20. FINDINGS: There are scattered areas of fibroglandular density. IMPRESSION: There is no radiographic evidence for malignancy. ASSESSMENT: BI-RADS Category 2: Benign RECOMMENDATION: Routine screening mammogram in 1 year. A lay language report of this examination will be provided to the patient. SUNNY TY M.D. Diagnostic Radiologist [email or web address] Transcribed: 2:[address]/Dictated by: Sunny Ty MD @ 12/08/2023 10:36:00 AM (Electronically Signed)
== END 2023-12-08 09:04 | disposition home or self-care (01) ==
LOC: MAMMO 09:03
PROVIDERS: PCP Family Medicine; Visit Provider Family Medicine
DX: Z12.31 Encounter for screening mammogram for malignant neoplasm of breast (principal)
CPT/HCPCS: 77063; 77067

== ENCOUNTER 2024-05-08 17:08 | Outpatient (CLI) | payer BC, SELFPAY | END 2024-05-08 17:09 | disposition home or self-care (01) | PROVIDERS: PCP Family Medicine; Visit Provider Registered Nurse | DX: M25.50 Pain in unspecified joint (principal) | CPT/HCPCS: 80053; 86038; 86039; 86140; 86200; 86431; 86618 ==

== ENCOUNTER 2024-06-07 11:08 | Outpatient (CLI) | payer BC, SELFPAY ==
--- NOTE | 2024-06-07 11:15 | CRLHL7_ITS ---
For Patients: As a result of the Century Cures Act, medical imaging exams and procedure reports are released immediately into your electronic medical record. You may view this report before your referring provider. If you have questions, please contact your health care provider. Indication: Benign lipomatous neoplasm of skin or subcutaneous tissue Technique: Grayscale ultrasound of the left medial elbow soft tissues performed in the area of concern. Comparison: None Findings: Normal subcutaneous tissues are present. No fluid collection or mass. No shadowing lesion or adenopathy. Impression: Negative targeted sonogram to the left medial elbow soft tissues. No suspicious findings. Dictated by Sunny Plunkett MD @ 06/07/2024 1:23:39 PM (Electronically Signed)
== END 2024-06-07 11:09 | disposition home or self-care (01) ==
LOC: US 11:10
PROVIDERS: PCP Family Medicine; Visit Provider Physician Assistant Medical
DX: D17.22 Benign lipomatous neoplasm of skin and subcutaneous tissue of left arm (principal)
CPT/HCPCS: 76882

== ENCOUNTER 2024-12-08 11:08 | Outpatient (CLI) | payer BC, SELFPAY ==
--- NOTE | 2024-12-08 11:30 | CRLHL7_ITS ---
For Patients: As a result of the Century Cures Act, medical imaging exams and procedure reports are released immediately into your electronic medical record. You may view this report before your referring provider. If you have questions, please contact your health care provider. INDICATION: BILATERAL SCREENING MAMMOGRAM, ASYMPTOMATIC 49 Y/O FEMALE COMPARISON: 12/08/2023, 12/02/2022, 11/26/2021 TECHNIQUE: Digital mammogram in CC and MLO projections including computer-aided detection (CAD) and tomosynthesis. BREAST COMPOSITION: There are scattered areas of fibroglandular density. FINDINGS: No suspicious findings. ASSESSMENT: BI-RADS 1 Negative RECOMMENDATION: Annual screening mammogram. A lay language report of this examination will be provided to the patient. Dictated by: Deepa Escobedo MD @ 12/11/2024 21:25:58 (Electronically Signed)
== END 2024-12-08 11:09 | disposition home or self-care (01) ==
LOC: MAMMO 11:09
PROVIDERS: PCP Family Medicine; Visit Provider Family Medicine
DX: Z12.31 Encounter for screening mammogram for malignant neoplasm of breast (principal)
CPT/HCPCS: 77063; 77067

== ENCOUNTER 2024-12-26 09:45 | Outpatient (CLI) | payer BC, SELFPAY ==
[2024-12-29 08:02] LABS: HPV Source Cervix
[2025-01-03 14:38] LABS: Pap Test Digital Imaging Done; Pap Test Reviewed by Pathologi Done
== END 2024-12-26 09:46 | disposition home or self-care (01) ==
PROVIDERS: PCP Family Medicine; Visit Provider Obstetrics & Gynecology
DX: Z13.6 Encounter for screening for cardiovascular disorders (principal); Z12.4 Encounter for screening for malignant neoplasm of cervix; Z11.51 Encounter for screening for human papillomavirus (HPV)
CPT/HCPCS: 80048; 80061; 87624; 87625; 88141; 88142; 88175

== ENCOUNTER 2025-01-26 13:58 | Outpatient (CLI) | payer BC, SELFPAY ==
[2025-01-31 02:37] LABS: HPV Source Cervical
[2025-02-06 11:27] LABS: Pap Test Digital Imaging Done; Pap Test Reviewed by Pathologi Done
== END 2025-01-26 13:59 | disposition home or self-care (01) ==
PROVIDERS: PCP Family Medicine; Visit Provider Obstetrics & Gynecology
DX: Z12.4 Encounter for screening for malignant neoplasm of cervix (principal); Z11.51 Encounter for screening for human papillomavirus (HPV)
CPT/HCPCS: 87624; 87625; 88141; 88142; 88175